=== PATIENT | male | born 1990 | race Caucasian/White ===

== ENCOUNTER 2019-03-20 04:10 | Emergency (ER) | payer MEDICAID, SELFPAY ==
[2019-03-20 04:10] VITALS: BP 115/67; PULSE 66; RESP 16; TEMP 36.6; O2SAT 100; BMI 28.6
--- NOTE | 2019-03-20 04:20 | EKG12_ITS ---
Test Reason : MENTAL CLEARANCE Blood Pressure : / mmHG Vent. Rate : 068 BPM Atrial Rate : 068 BPM P-R Int : 156 ms QRS Dur : 094 ms QT Int : 396 ms P-R-T Axes : 018 054 036 degrees QTc Int : 421 ms Normal sinus rhythm Nonspecific T wave abnormality Abnormal ECG Confirmed by LINDA RIVAS, REJI ([id number]), editor map ARUNA MARIEE ([id number] on 03/24/2019 9:43:20 AM Referred By: Confirmed By:SHANTI MCKEON MD
--- NOTE | 2019-03-20 04:34 | ED.DCSUM_ITS ---
History of Present Illness Chief Complaint: Suicidal Detail of Chief Complaint: Depressed with suicide attempt Informant: Patient, Significant Other Onset: Today Context: Sudden Onset Conflict: - - She states that she has been depressed for some time Timing: Continuous Current Severity: Severe Maximum Severity: Severe Relieved by: Nothing Associated Symptoms: Depressed, Change in Eating, Change in sleeping, Decreased Interest, Decreased Concentration, Suicidal Thoughts, Visual Hallucinations. Negative for: Grandiosity, Flight of Ideas, Increased activity, Pressured Speech, Agitated, Angry, Hostile, Threatening, Confusion, Paranoia Specific plan (suicidal thought): Should not with numerous cuts to the anterior neck, left forearm and thighs Narrative: Patient is a 28-year-old genotypic male phenotypic female who identifies as a woman. She is not presently on hormonal therapy and has not had a sex change operation. She has history of depression. Hospitalized once in 2009. She is not presently being seen by a therapist or psychiatrist. Patient states she is very depressed. She disassembled a 5 blade razor and cut her extremities and anterior neck. Immunization will need updated. There is no ocular, visual auditory symptoms. There is no complaint of difficulty swallowing or change in voice. There is no cardiac or respiratory symptoms. There is no GI symptoms. There is no urologic symptoms. There is no complaint of paresthesia or anesthesia. Prior similar symptoms: No Recent Illness/Hospitalization: No - Past Medical History (1) History of gender identity disorder Status: Acute (2) History of depression Status: Acute Past Medical History - Allergies and Home Meds Allergies/Adverse Reactions: Allergies No Known Allergies Allergy (Verified 03/20/19 04:14) Primary Care Physician: Octavio Plummer MD [Primary Care Provider] - Surgical History: no surgical history Lives: Spouse/ Significant Other Smoking Status: Former smoker Alcohol: None Drugs: None Review of Systems General: Denies: Chills, Fever, Sweats Eyes: Denies: Visual changes - bilaterally, Blurred Vision - bilaterally, Diplopia ENT: Denies: Bilateral ear pain, Rhinorrhea, Sore throat Cardiovascular: Denies: Chest pain, Palpitations, Heart racing Respiratory: Denies: Dyspnea, Cough, Dyspnea on exertion Gastrointestinal: Denies: Abdominal pain, Nausea, Vomiting, Diarrhea, Melena, Hematochezia Genitourinary: Denies: Dysuria, Hematuria, Frequency Musculoskeletal: Reports: Extremity Pain - Pain to all extremities secondary to self-inflicted superficial lacerations. Denies: Myalgias, Arthralgias, Neck pain, Back pain, Swelling Skin: Denies: Rash, Wounds Neurological: Denies: Headache, Weakness, Numbness Psych: Reports: Depression, Suicidal thoughts, Suicidal ideations, - - Suicidal attempt/self-harm Hematologic: Denies: Easy bruising, Easy bleeding Allergy: Denies: Uticaria, Swelling of the mouth, Swelling of the tongue Physical Exam Vital Signs/Narrative: Vital Signs Temp Pulse Resp BP Pulse Ox 03/20/19 04:10 97.8 F 66 16 115/67 100 Inital Vital Signs reviewed: Yes General: Well nourished, Well developed Head: Normocephalic, Atraumatic Eyes: Perrl, EOMI ENT: Moist mucous membranes, No rhinorrhea, TM's clear Neck: Supple, Nontender, No lymphadenopathy, No JVD, - - There are numerous superficial laceration. There is one that may enter the subcutaneous tissue. This is midline. There is no violation of the platysmas. Cardiovascular: Regular rate, Regular rhythm, No murmurs, Normal S1, Normal S2 Respiratory: No distress, CTA bilaterally, Chest nontender Abdomen: Soft, Nontender, Nondistended, Normal bowel sounds Back: Nontender, Normal Inspection Extremities: No Edema, - - Numerous lacerations to the forearms and thighs. Negative for: Nontender Skin: Normal color, No rash Neurological: Alert, Oriented x3, Cranial nerves II-XII grossly intact, Normal Strength, Normal Sensation, Normal DTR Psych: Depressed, Poverty of Speech, Suicidal thoughts, Hallucinations, Poor Insight, Poor Judgement. Negative for: Normal Speech Pattern, Logical sequential goal directed thoughts, No suicidal or homicidal ideation, Normal Stable Appropriate Affect, Normal Appearance, Labile, Blunted Affect, Restricted Affect, Pressured Speech, Flight of Ideas, Incoherent thoughts, Homicidal thoughts Diagnostic/Tx/Re-eval Laboratory Results 03/20/19 03/20/19 03/20/19 04:40 04:50 04:50 WBC 11.2 H RBC 4.57 L Hgb 13.7 Hct 41.4 MCV 90.6 MCH 30.0 MCHC 33.1 RDW Std Deviation 41.1 RDW Coeff of Kate 12.3 Plt Count 320 MPV 9.6 Immature Gran % (Auto) 0.400 Neut % (Auto) 73.4 H Lymph % (Auto) 19.2 [place] % (Auto) 5.8 Eos % (Auto) 0.9 Baso % (Auto) 0.3 Absolute Neuts (auto) 8.3 H Absolute Lymphs (auto) 2.16 Nucleated RBC % 0 Sodium 142 Potassium 3.7 Chloride 108 H Carbon Dioxide 28.0 Anion Gap 6 BUN 7 Creatinine 0.82 Estim Creat Clear Calc 127.63 Est GFR (MDRD) Af Amer 145 Est GFR (MDRD) Non-Af 120 BUN/Creatinine Ratio 8.5 L Glucose 91 Calcium 8.7 Total Bilirubin 0.40 AST 17 ALT 19 Alkaline Phosphatase 77 Total Protein 7.5 Albumin 4.3 Globulin 3.2 Albumin/Globulin Ratio 1.3 Salicylates Urine Opiates Screen NEGATIVE Urine Methadone Screen NEGATIVE Acetaminophen Ur Barbiturates Screen NEGATIVE Ur Phencyclidine Scrn NEGATIVE Ur Amphetamines Screen NEGATIVE U Methamphetamin-MDMA NEGATIVE U Benzodiazepines Scrn POSITIVE H Urine Cocaine Screen NEGATIVE U Cannabinoids Screen POSITIVE H Ur Drug Screen Comment Ethyl Alcohol 03/20/19 04:50 WBC RBC Hgb Hct MCV MCH MCHC RDW Std Deviation RDW Coeff of Kate Plt Count MPV Immature Gran % (Auto) Neut % (Auto) Lymph % (Auto) [place] % (Auto) Eos % (Auto) Baso % (Auto) Absolute Neuts (auto) Absolute Lymphs (auto) Nucleated RBC % Sodium Potassium Chloride Carbon Dioxide Anion Gap BUN Creatinine Estim Creat Clear Calc Est GFR (MDRD) Af Amer Est GFR (MDRD) Non-Af BUN/Creatinine Ratio Glucose Calcium Total Bilirubin AST ALT Alkaline Phosphatase Total Protein Albumin Globulin Albumin/Globulin Ratio Salicylates 3.3 Urine Opiates Screen Urine Methadone Screen Acetaminophen < 2.0 L Ur Barbiturates Screen Ur Phencyclidine Scrn Ur Amphetamines Screen U Methamphetamin-MDMA U Benzodiazepines Scrn Urine Cocaine Screen U Cannabinoids Screen Ur Drug Screen Comment Ethyl Alcohol < 3.0 Tox screen was positive for benzodiazepine area patient does have a prescription for Xanax. Urine tox was also positive for cannabinoids. - EKG Initial EKG Interpretation: Sinus Rhythm - Sinus rhythm with a ventricular rate of 68. TN interval is 156 ms. QS duration 94 ms. QT duration 396 ms. [place] is normal. Computer is reading ossific changes. There is no evidence of ischemia. Patient with severe depression and suicidal ideation with numerous superficial linear cuts. Appropriate labs were obtained to assess for renal dysfunction, li claudio dysfunction, acetaminophen and aspirin toxicity. Tetanus immunization was updated. Wounds were cleansed and dressed. Since these are superficial they were not sutured. Once results of tox and alcohol are obtained we will contact mental health since patient will require admission. Patient's lacerations were cleansed and dressed appropriately. Patient's tests were unremarkable. Patient injuries are not life-threatening or serious. In my professional medical opinion patient's work-up does not indicate any life- threatening or significant illness i.e. infectious or metabolic. She is safe and appropriate for transfer to psychiatric facility to receive appropriate psychiatric care. Patient was transferred to Dr. Harris. Transport slip was signed by me. Steen slip was signed by me. ED Disposition - Plan for ED Patient: Disposition: Psychiatric Hospital or Unit Diagnosis: Major depression, Suicidal behavior with attempted self-injury, Laceration without foreign body of unspecified part of neck, initial encounter, Laceration of left thigh without complication, Laceration of right thigh, Laceration of forearm Referrals: Octavio Plummer MD [Primary Care Provider] -
[2019-03-20] MEDS: Diphth,Pertuss(Acell),Tet Vac 0.5 ML Vial IM (05:00)
[2019-03-20 05:11] LABS: Absolute Lymphocyte Count 2.16 X10^3/uL (0.83-4.51); Absolute Neutrophil Count 8.3 X10^3/uL (2.0-7.7); Basophil# 0.03 X10^3/uL; Basophil% 0.3 % (0-1); Eosinophils% 0.9 % (0-5); Hematocrit 41.4 % (40-54); Hemoglobin 13.7 g/dL (13.0-16.5); Lymphocyte # 2.16 X10^3/ul (4.0); Lymphocyte % 19.2 % (19-41); Mean Corp Hgb Conc 33.1 g/dL (32-36); Mean Corpuscular Volume 90.6 fL (80-94); Mean Platelet Vol. 9.6 fl (6.2-12.0); Monocyte# 0.65 X10^3/uL; Monocyte% 5.8 % (0-10); NRBC Flagged by Analyzer 0 % (0-5); Neutrophil # 8.26 X10^3/uL (2.7-7.7); Neutrophil % 73.4 % (47-70); Platelet Count 320 K/mm3 (150-450); RBC Distribution Width CV 12.3 % (11.6-14.6); RBC Distribution Width SD 41.1 fl (35.1-43.9); Red Blood Count 4.57 M/mm3 (4.6-6.2); White Blood Count 11.2 K/mm3 (4.4-11.0)
[2019-03-20 05:27] LABS: ALB/GLOB Ratio 1.3 RATIO (0.9-2.4); AST(SGOT) 17 U/L (15-37); Alanine Aminotransfer ALT/SGPT 19 U/L (16-61); Albumin, Serum 4.3 g/dL (3.2-5.0); Alkaline Phosphatase 77 U/L (45-117); Anion Gap 6 (5-15); BUN 7 mg/dL (7-18); BUN/Creat Ratio 8.5 RATIO (10-20); Calcium,Total 8.7 mg/dL (8.5-10.1); Chloride 108 mmol/L (98-107); Creatinine, Serum 0.82 mg/dL (0.70-1.30); EST Glomerular Filtration Rate 120 mL/min (>60); Est Glom Filt Rate - Afr Amer 145 mL/min (>60); Estimated Creatinine Clearance 127.63 ml/min; Globulin 3.2 g/dL (2.2-4.2); Glucose 91 mg/dL (74-106); Potassium 3.7 mmol/L (3.5-5.1); Protein, Total 7.5 g/dL (6.4-8.2); Sodium Level 142 mmol/L (136-145)
[2019-03-20 05:39] LABS: Amphetamine Urine VISTA NEGATIVE (<1000 ng/mL); Barbiturate Urine VISTA NEGATIVE (< 200 ng/mL); Benzodiazepine Urine VISTA POSITIVE (< 200 ng/mL); Cocaine Urine VISTA NEGATIVE (< 300 ng/mL); Ecstacy Urine VISTA NEGATIVE (< 500 ng/mL); Methadone Urine VISTA NEGATIVE (< 300 ng/mL); PCP Urine VISTA NEGATIVE (< 25 ng/mL); THC Urine VISTA POSITIVE (< 50 ng/mL); Vista UDS pH Range 7
[2019-03-20 05:44] VITALS: BP 114/82; PULSE 66; RESP 20; O2SAT 100
--- NOTE | 2019-03-20 05:48 | ED.RN ---
All wounds were cleaned with sure-cleans, copious amounts of Bacitracin was applied and wounds were wrapped. PT tolerated the procedure very well.
[2019-03-20 05:56] LABS: Acetaminophen (Tylenol) Level < 2.0 ug/mL (10.0-30.0); Alcohol, Blood (Medical)-Serum < 3.0 mg/dL; Salicylate 3.3 mg/dL (2.8-20.0)
--- NOTE | 2019-03-20 06:01 | NURSING ---
CALLED CRISIS AT [id number]
[2019-03-20 06:50] VITALS: BP 106/64; PULSE 67; RESP 17; O2SAT 100
[2019-03-20 08:41] VITALS: BP 106/82; PULSE 72; RESP 13; O2SAT 96
[2019-03-20] MEDS: ALPRAZolam 0.5 MG Tablet 1 MG PO (09:06)
[2019-03-20] MEDS: Citalopram 20 MG Tablet PO (09:06)
--- NOTE | 2019-03-20 09:10 | ED.RN ---
THE PHARMACY DOES NOT HAVE PATIENT'S ADDERALL XR 30MG, PATIENT WAS GIVEN ONE OF HIS FROM HOME.
[2019-03-20 10:17] VITALS: BP 103/73; PULSE 59; RESP 14; O2SAT 97
[2019-03-20 10:38] VITALS: BP 104/79; PULSE 93; RESP 24; O2SAT 97
--- NOTE | 2019-03-20 10:50 | ED.RN ---
IV DC'ED, CATHETER INTACT, SMALL GAUZE DRESSING PLACED.
--- NOTE | 2019-03-20 10:54 | ED.RN ---
REPORT GIVEN TO [facility], BELONGINGS GIVEN TO THEM. PT STATUS UNCHANGED AT THIS TIME.
== END 2019-03-20 10:55 ==
PROVIDERS: Emergency Provider Emergency Medicine; Family Provider Family Medicine; PCP Family Medicine
DX: F32.9 Major depressive disorder, single episode, unspecified (principal); S51.812A Laceration without foreign body of left forearm, initial encounter; S51.811A Laceration without foreign body of right forearm, initial encounter; S71.112A Laceration without foreign body, left thigh, initial encounter; S71.111A Laceration without foreign body, right thigh, initial encounter; S11.91XA Laceration without foreign body of unspecified part of neck, initial encounter; X78.8XXA Intentional self-harm by other sharp object, initial encounter; Y93.9 Activity, unspecified; Y92.9 Unspecified place or not applicable; F64.0 Transsexualism; Z79.899 Other long term (current) drug therapy; Z87.891 Personal history of nicotine dependence
CPT/HCPCS: 80053; 80307; 80320; 80329; 85025; 90715; 93005; 99285; A4216; G0480

== ENCOUNTER 2020-09-26 03:44 | Emergency (ER) | payer MEDICAID, SELFPAY ==
[2020-09-26 03:45] VITALS: BP 128/79; PULSE 94; RESP 18; TEMP 36.1; O2SAT 98; BMI 32.9
--- NOTE | 2020-09-26 04:07 | ED.DCSUM_ITS ---
History of Present Illness Chief Complaint: Abd Pain Informant: Patient Narrative: Patient is a 30-year-old phenotypical male only on hormonal medications for transitioning presenting with GI symptoms. Patient states for the past 3 days he has had increased abdominal pain, nausea and vomiting. He has associated diarrhea. He states his vomit has been brown. The pain is in his upper abdomen. He describes it as sharp and cramping in nature. Denies any radiation of the pain. No associated chest pain, shortness of breath or difficulty breathing. He denies any blood in his vomit or stool. He denies any associated fever or skin changes. He denies any sick contacts. No urinary symptoms. No other complaints at this time. Past Medical History - Allergies and Home Meds Allergies/Adverse Reactions: Allergies No Known Allergies Allergy (Verified 09/26/20 03:50) Primary Care Physician: Octavio Plummer MD [Primary Care Provider] - Past Medical History: - - Depression, transgender Surgical History: noncontributory, tonsillectomy Smoking Status: Never smoker Review of Systems General: Denies: Chills, Fever, Sweats Eyes: Denies: Visual changes - bilaterally, Diplopia ENT: Denies: Rhinorrhea, Sore throat Cardiovascular: Denies: Chest pain, Palpitations Respiratory: Denies: Dyspnea, Cough, Dyspnea on exertion Gastrointestinal: Reports: Abdominal pain, Nausea, Vomiting, Diarrhea. Denies: Melena, Hematochezia Genitourinary: Denies: Dysuria, Hematuria, Frequency Musculoskeletal: Denies: Back pain, Extremity Pain Skin: Denies: Rash, Wounds Neurological: Denies: Headache, Weakness, Numbness Physical Exam Vital Signs/Narrative: Vital Signs Temp Pulse Resp BP Pulse Ox 09/26/20 03:45 96.9 F L 94 18 128/79 H 98 Inital Vital Signs reviewed: Yes General: Well nourished, Well developed, No Acute Distress Head: Normocephalic, Atraumatic Eyes: Perrl, EOMI ENT: Moist mucous membranes, No rhinorrhea Neck: Supple, Nontender Cardiovascular: Regular rate, Regular rhythm, No murmurs Respiratory: No distress, CTA bilaterally, Chest nontender Abdomen: Soft, Nondistended, Normal bowel sounds, Tender - Diffusely of the upper abdomen. Negative for: Guarding, Rebound tenderness, Pulsatile mass Back: Nontender, Normal Inspection Extremities: Nontender, No edema Skin: Normal color, No rash Neurological: Alert, Oriented x3, Cranial nerves II-XII grossly intact, Normal Strength, Normal Sensation Psychological: Normal affect, Normal Mood, - - Patient is very anxious Diagnostic/Tx/Re-eval Clinical Impression(s) from Imaging Studies Abdomen/Pelvis CT 09/26/20 05:29 IMPRESSION: Suspected small bowel ileus with mild enteritis, mild inflammation of the ascending colon possible. Mild mesenteric adenitis. Indistinct contour of the urinary bladder could be secondary to nondistention, and inflammatory process is not excluded and laboratory correlation is recommended depending on symptoms. There is no , diverticulitis, ascites, abscess, collection, perforation or obstruction. Mild hepatomegaly hepatic steatosis. The low-attenuation changes within the left hepatic lobe cannot be further detailed, statistically most common cysts or hemangiomata. This can be correlated with ultrasound. Electronically Signed: France Tariq MD at 6:16 EDT , Service support , Laboratory Data 09/26/20 09/26/20 09/26/20 04:02 04:02 04:15 WBC 12.7 H RBC 4.83 Hgb 14.1 Hct 43.4 MCV 89.9 MCH 29.2 MCHC 32.5 RDW Std Deviation 40.8 RDW Coeff of Kate 12.3 Plt Count 379 MPV 9.6 Immature Gran % (Auto) 0.600 Neut % (Auto) 64.9 Lymph % (Auto) 24.5 [place] % (Auto) 7.8 Eos % (Auto) 1.9 Baso % (Auto) 0.3 Absolute Neuts (auto) 8.2 H Absolute Lymphs (auto) 3.10 Nucleated RBC % 0 Sodium 136 Potassium 4.0 Chloride 100 Carbon Dioxide 30.0 Anion Gap 6 BUN 7 Creatinine 0.87 Estim Creat Clear Calc 118.19 Est GFR (MDRD) Af Amer 134 Est GFR (MDRD) Non-Af 111 BUN/Creatinine Ratio 8.1 L Glucose 89 Calcium 8.5 Total Bilirubin 0.40 AST 23 ALT 26 Alkaline Phosphatase 69 Total Protein 7.8 Albumin 4.0 Globulin 3.8 Albumin/Globulin Ratio 1.1 Lipase 64 L Urine Color Yellow Urine Clarity Clear Urine pH 7.0 Ur Specific [place] 1.010 Urine Protein 15 H Urine Glucose (UA) Normal Urine Ketones 5 H Urine Occult Blood Negative Urine Nitrite Negative Urine Bilirubin Negative Urine Urobilinogen Normal Ur Leukocyte Esterase 25 H Urine RBC 0 SEEN Urine WBC 0-5 SEEN Ur Squamous Epith Cells 0 SEEN Urine Bacteria 0 SEEN Urine Mucus 0 SEEN - Medical Decision Making Patient evaluated for abdominal pain, vomiting and diarrhea. He appears uncomfortable but nontoxic.He has a mild leukocytosis of 12.7 suspect is reactive. CMP is normal. Lipase is low at 64. Urinalysis shows 5 ketones with 25 leukoesterase and 0-5 white blood cells. Patient does not have any urinary symptoms. CT of the abdomen and pelvis shows suspected small bowel ileus with mild enteritis and mild inflammation of the ascending colon possible. Mild mesenteric adenitis. Patient's presentation is consistent with a viral syndrome. He is given IV fluids, morphine and Zofran with improvement of his symptoms in the ER. He is resting comfortably. Patient is counseled on incidental findings on CT including a liver hemangioma. Will follow up with primary care doctor for this. He is given a prescription for Zofran and counseled to stick to a liquid diet for the next day or 2 to help settle stomach. Counseled return precautions. Verbalizes agreement and understanding of this plan. Discharged home in stable condition. ED Disposition - Plan for ED Patient: Disposition: Home or Assisted Living Diagnosis: Gastroenteritis Instructions: ED Gastroenteritis, Noninfectious Prescriptions: Ondansetron [Zofran Odt] 4 mg PO Q8H PRN PRN #10 tablet PRN Reason: Nausea Transmission Status: Received by [facility]/pharmacy #[id number] Referrals: Octavio Plummer MD [Primary Care Provider] - Additional Instructions: Your CT does show some inflammation of your stomach and bowels. Likely this is from a viral infection. Rest your GI tract with liquid diet for the next 24 hours. You been prescribed nausea medicine. Your CT showed an incidental finding of your liver. Likely this is benign but please follow-up with your primary care doctor for evaluation of this further with ultrasound. This can be done not emergently.
[2020-09-26 04:11] LABS: Absolute Neutrophil Count 8.2 X10^3/uL (2.0-7.7); Basophil# 0.04 X10^3/uL; Basophil% 0.3 % (0-1); Eosinophil# 0.24 X10^3/uL; Eosinophils% 1.9 % (0-5); Hematocrit 43.4 % (40-54); Hemoglobin 14.1 g/dL (13.0-16.5); Lymphocyte % 24.5 % (19-41); Mean Corp Hgb Conc 32.5 g/dL (32-36); Mean Corpuscular Hgb 29.2 pg (27.0-32.0); Mean Corpuscular Volume 89.9 fL (80-94); Mean Platelet Vol. 9.6 fl (6.2-12.0); Monocyte# 0.99 X10^3/uL; Monocyte% 7.8 % (0-10); NRBC Flagged by Analyzer 0 % (0-5); Neutrophil # 8.22 X10^3/uL (2.7-7.7); Neutrophil % 64.9 % (47-70); Platelet Count 379 K/mm3 (150-450); RBC Distribution Width CV 12.3 % (11.6-14.6); RBC Distribution Width SD 40.8 fl (35.1-43.9); Red Blood Count 4.83 M/mm3 (4.6-6.2); White Blood Count 12.7 K/mm3 (4.4-11.0)
[2020-09-26] MEDS: 0.9% Normal Saline 1,000 ML 1000 ML IV (04:18)
[2020-09-26] MEDS: Ondansetron 4 MG/2 ML Vial IV (04:19)
[2020-09-26] MEDS: Morphine 4 MG/ML Syringe IV (04:19)
[2020-09-26 04:34] LABS: Bacteria 0 SEEN /hpf (None Seen); Mucous, Urine 0 SEEN /hpf (<or=2+); Red Blood Cells-Urine 0 SEEN /hpf (0-5); Squamous Epithelial Cells - UA 0 SEEN /hpf (0-5)
[2020-09-26 04:47] LABS: Color, Urine Yellow (Yellow); Glucose, Dipstick Normal (Normal); Ketone-Dipstick 5 mg/dl (Negative); Leukocyte Esterase-Dipstick 25 /ul (Negative); Nitrite-Dipstick Negative (Negative); Occult Blood-Urine Negative /ul (Negative); Protein-Dipstick 15 mg/dl (Negative); Urine Bilirubin Dipstick Negative (Negative); Urine Clarity Clear (Clear); Urine Urobilinogen Normal (Normal)
[2020-09-26 04:53] LABS: White Blood Cells 0-5 SEEN /hpf (0-5)
[2020-09-26 05:28] LABS: ALB/GLOB Ratio 1.1 RATIO (0.9-2.4); AST(SGOT) 23 U/L (15-37); Alanine Aminotransfer ALT/SGPT 26 U/L (16-61); Alkaline Phosphatase 69 U/L (45-117); Anion Gap 6 (5-15); BUN 7 mg/dL (7-18); BUN/Creat Ratio 8.1 RATIO (10-20); Calcium,Total 8.5 mg/dL (8.5-10.1); Chloride 100 mmol/L (98-107); Creatinine, Serum 0.87 mg/dL (0.70-1.30); EST Glomerular Filtration Rate 111 mL/min (>60); Est Glom Filt Rate - Afr Amer 134 mL/min (>60); Estimated Creatinine Clearance 118.19 ml/min; Globulin 3.8 g/dL (2.2-4.2); Glucose 89 mg/dL (74-106); Lipase 64 U/L (73-393); Protein, Total 7.8 g/dL (6.4-8.2); Sodium Level 136 mmol/L (136-145)
--- NOTE | 2020-09-26 05:29 | CT_ITS ---
STUDY: CT ABDOMEN AND PELVIS WITH CONTRAST REASON FOR EXAM: Male, 30 years old. abdominal pain RADIATION DOSAGE (If Supplied By Facility): CTDIvol = ( 15.57 ) mGy, DLP = ( 1136.10 ) mGycm TECHNIQUE: Transaxial images were obtained from the dome of the diaphragm to the symphysis pubis without oral contrast. IV 100mL Isovue-370 was administered. Sagittal and coronal images were reconstructed. Individualized dose optimization techniques were used for this CT. COMPARISON: None. FINDINGS: The visualized lung bases are unremarkable. The visualized portions of the heart are within normal limits. There is decreased attenuation of the mildly enlarged liver with 2 areas of low attenuation in the anterior left hepatic lobe measuring 0.6 cm, too small to characterize.. Normal gallbladder and extrahepatic biliary system. Normal spleen. Normal pancreas. Normal bilateral adrenal glands. Normal right kidney. Normal left kidney. Normal visualized stomach. Normal small intestine. Normal colon. The appendix is visualized and appears normal. Normal abdominal aorta. Regino filled distal small bowel with mild indistinct contour, mild mucosal enhancement without abrupt caliber change or obstructive pattern. Mild mucosal enhancement of the ascending colon. No wall thickening. Few mesenteric lymph nodes in the right lower abdomen. Normal retroperitoneum. Indistinct contour of the partially decompressed urinary bladder. Normal abdominal wall. Normal osseous structures. CT/Abdomen/Pelvis W IV Cont ONLY IMPRESSION: Suspected small bowel ileus with mild enteritis, mild inflammation of the ascending colon possible. Mild mesenteric adenitis. Indistinct contour of the urinary bladder could be secondary to nondistention, and inflammatory process is not excluded and laboratory correlation is recommended depending on symptoms. There is no , diverticulitis, ascites, abscess, collection, perforation or obstruction. Mild hepatomegaly hepatic steatosis. The low-attenuation changes within the left hepatic lobe cannot be further detailed, statistically most common cysts or hemangiomata. This can be correlated with ultrasound. Electronically Signed: France Tariq MD at 6:16 EDT , Service support ,
[2020-09-26 05:51] VITALS: RESP 16
[2020-09-26 07:23] VITALS: BP 143/90; PULSE 77; RESP 18; O2SAT 97
== END 2020-09-26 07:24 | disposition home or self-care (01) ==
PROVIDERS: Emergency Provider Emergency Medicine; PCP Family Medicine
DX: K52.9 Noninfective gastroenteritis and colitis, unspecified (principal); I88.0 Nonspecific mesenteric lymphadenitis; F64.0 Transsexualism; F32.9 Major depressive disorder, single episode, unspecified; Z79.899 Other long term (current) drug therapy
CPT/HCPCS: 74177; 80053; 81001; 83690; 85025; 96361; 96374; 96375; 99282; J7030; Q9967; A4216; J2405

== ENCOUNTER 2020-10-05 14:21 | Outpatient (RCR) | payer MEDICAID, SELFPAY ==
[2020-10-05] MEDS: COVID-19 VACC, MRNA(PFIZER)/PF 30 MCG/0.3 ML SYRINGE IM (18:16)
[2020-10-26] MEDS: COVID-19 VACC, MRNA(PFIZER)/PF 30 MCG/0.3 ML SYRINGE IM (17:06)
== END 2020-11-14 23:59 ==
LOC: IMMUN 14:21
PROVIDERS: PCP Family Medicine; Visit Provider Family Medicine
DX: Z23 Encounter for immunization (principal)
CPT/HCPCS: 0001A; 0002A

== ENCOUNTER → 2020-10-13 08:25 | Outpatient (CLI) | payer MEDICAID, SELFPAY ==
[2020-09-26 03:45] VITALS: BMI 32.9
--- NOTE | 2020-10-13 08:33 | US_ITS ---
STUDY: ABDOMINAL ULTRASOUND - RIGHT UPPER QUADRANT REASON FOR VISIT: Male, 30 years old LIVER LESION TECHNIQUE: Ultrasound evaluation of the right upper quadrant was performed with real-time and static paiz-scale imaging. TECHNICAL QUALITY: Adequate. COMPARISON: Comparison is made with prior CT scan of the abdomen dated 09/26/2020. FINDINGS: Liver: The liver measures 17.2 cm. There is increased echogenicity consistent with fatty infiltration. The bile ducts are within normal limits. There is hepatic color flow. The direction of portal flow is hepatopetal. There is a 8 mm x 7 mm x 7 mm cyst in the left lobe of the liver. Gallbladder: There is a contracted gallbladder. The gallbladder wall measures 1.8 mm. There is a negative sonographic Bela''s sign. There is no pericholecystic fluid. There are no gallstones. Common Bile Duct (C.B.D.): The common bile duct measures 5.1 mm. Pancreas: Normal size of the head, body and tail of the pancreas. There is normal echogenicity of the pancreas. There is no demonstrated pancreatic mass or cyst. Right Kidney: Normal size of the right kidney. The right kidney measures 12.1 cm x 4.6 cm x 4.8 cm. Normal renal cortex. The right cortex measures 1.6 cm. There is no demonstrated renal mass or cyst. There is no right hydronephrosis. US/Abdomen Limited IMPRESSION: Fatty infiltration of the liver. 8 mm x 7 mm x 7 mm cyst in the left lobe of the liver. Electronically Signed: Humble Gavin MD at 11:20 EDT , Service support ,
== END ==
PROVIDERS: PCP Family Medicine; Referring Provider Family Medicine; Visit Provider Family Medicine
DX: K76.9 Liver disease, unspecified (principal)
CPT/HCPCS: 76705